=== PATIENT | male | born 1995 | race African-American/Black ===

== ENCOUNTER 2019-12-07 21:14 | Emergency (ER) | payer SELFPAY ==
[~2019-12-07] VITALS: Ht 162.6 cm; Wt 90.0 kg
[2019-12-08] MEDS ORDERED: IBUPROFEN 600MG TABLET PO STA (01:43)
[2019-12-08 01:52] VITALS: BP 125/86
== END 2019-12-08 02:12 | disposition home or self-care (01) ==
LOC: ER 21:14
DX: H60.92 Unspecified otitis externa, left ear (principal)
CPT/HCPCS: 99283